=== PATIENT | male | born 1985 | race American Indian/Alaskan Native ===

== ENCOUNTER 2021-01-22 14:48 | Emergency (ER) | payer OTHER ==
[2021-01-22 14:54] VITALS: BP 143/86
--- NOTE | 2021-01-22 16:36 | ED Physician Documentation ---
History of Present Illness - Stated complaint Stated Complaint: L FT INJ - Chief complaint Chief Complaint: Trauma Ext - Additonal information Additional information: 35-year-old male presents emergency department for evaluation of left foot and ankle pain after a partially loaded trailer at work rolled over the foot. He reports that he hyper flexed his foot and now has pain in the posterior Achilles but he is able to bear weight. No history of previous injury to this left foot or ankle. No obvious deformity. Review of Systems Constitutional: reports: Reviewed and negative Nose: reports: Reviewed and negative Throat: reports: Reviewed and negative Cardiac: reports: Reviewed and negative Respiratory: reports: Reviewed and negative GI: reports: Reviewed and negative Skin: reports: Reviewed and negative Musculoskeletal: reports: Extremity pain (Left foot) PD PAST MEDICAL HISTORY - Allergies Allergies/Adverse Reactions: Allergies Allergy/AdvReac Type Severity Reaction Status Date / Time No Known Drug Allergies Allergy Verified 01/22/21 14:51 PD ED PE EXPANDED - Extremities Extremities: Left foot (Mild tenderness of the posterior Achilles though it feels intact and he has a negative Gilliland's. Patient is able to flex and extend and bear partial weight on the foot. Mild tenderness on the dorsum of the foot without deformity or ecchymosis. ) Results - Vitals Vitals: Vital Signs - 24 hr 01/22/21 14:52 Temperature 36.5 C Heart Rate 82 Respiratory 16 Rate Blood Pressure 143/86 H O2 Saturation 98 Oxygen O2 Source Room air - Rads (name of study) left foot/ankle Radiology: Final report received (No acute fractures or dislocations) PD MEDICAL DECISION MAKING - ED course Complexity details: reviewed results, d/w patient ED course: 35-year-old male presents emergency department for evaluation of acute left posterior ankle pain after a tractor trailer rolled over his foot at work. He has pain mostly in the posterior Achilles especially with dorsi flexion. His Gilliland's test is negative however. X-rays do not reveal any acute pathology. However based on exam I suspect that he has a partial Achilles tendon tear. P atient was placed in an equinus splint and will be followed up with orthopedics for further evaluation. Recommended ibuprofen for discomfort. 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 Paperwork filled out claim number [id number]. Departure - Departure Disposition: 01 Home, Self Care Clinical Impression: Partial tear of left Achilles tendon Qualifiers: Encounter type: initial encounter Qualified Code(s): S86.012A - Strain of left Achilles tendon, initial encounter Condition: Stable Record reviewed to determine appropriate education?: Yes Instructions: Achilles Tendonitis Follow-Up: Jason Talbot MD [Provider Admit Priv/Credential] - Comments: Mustapha were seen in the emergency department today for left foot and ankle pain after your foot was rolled over by a trailer at work. Did the x-rays do not show any broken bones but I suspect that you have a partial Achilles tendon tear in your left foot. I would like you to remain in the splint until seen by orthopedics. I recommend that you take Tylenol or ibuprofen [id number] for discomfort. A partial tear like yours may simply heal with time but it is important to prevent extensive movement of this tendon as it heals this is why we are placing you in a splint. Please call the orthopedics department for follow-up tomorrow. I would like you to get seen in the next 7 to 10 days. The splint that you are wearing cannot get wet so if it does please return to the ER for a second evaluation. You can return to work if you are given a position of nonweightbearing or desk duty When following up with other providers please always refer to your claim #[id number].
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
== END 2021-01-22 17:37 | disposition home or self-care (01) ==
LOC: ED 14:48
DX: S86.012A Strain of left Achilles tendon, initial encounter (principal); W31.89XA Contact with other specified machinery, initial encounter; Y99.0 Civilian activity done for income or pay
CPT/HCPCS: 1040M; 73600; 73620; 99281; 99283

== ENCOUNTER 2021-11-01 11:37 | Outpatient (CLI) | payer OTHER, BC ==
--- NOTE | 2021-11-01 12:49 | XRAY Report ---
PROCEDURE: Wrist 2 View LT INDICATIONS: SPRAIN OF LEFT WRIST TECHNIQUE: 3 views of the wrist were acquired. COMPARISON: None FINDINGS: Bones: No fractures or dislocations. No suspicious bony lesions. Scaphoid view: Scaphoid is grossly intact. Soft tissues: No suspicious soft tissue calcifications. Mild dorsal wrist soft tissue swelling is s een. IMPRESSION: Mild dorsal wrist soft tissue swelling. No wrist fracture or dislocation. Reviewed by: Jacob Rashid MD on 11/01/2021 12:48 PM PDT Approved by: Jacob Rashid MD on 11/01/2021 12:48 PM PDT Station ID: [id number]
== END 2021-11-01 11:38 | disposition home or self-care (01) ==
LOC: DI 11:37
PROVIDERS: ATTEND Registered Nurse
DX: S63.502A Unspecified sprain of left wrist, initial encounter (principal)

== ENCOUNTER 2022-07-18 20:56 | Emergency (ER) | payer BC ==
[2022-07-18] MEDS ORDERED: TETANUS/DIPHTHERIA/PERTUSSIS 0.5 ML SYRINGE IM ONE (21:06)
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
[2022-07-18 22:02] VITALS: BP 123/82
== END 2022-07-18 22:03 | disposition home or self-care (01) ==
LOC: ED 20:56
DX: S61.412A Laceration without foreign body of left hand, initial encounter (principal); W26.0XXA Contact with knife, initial encounter; Y93.89 Activity, other specified
CPT/HCPCS: 12001; 90471; 99283

== ENCOUNTER 2023-12-17 11:16 | Outpatient (CLI) | payer OTHER ==
--- NOTE | 2023-12-17 14:18 | XRAY Report ---
PROCEDURE: Ankle 3+V RT INDICATIONS: SPRAIN OF OTHER LIGAMENT TECHNIQUE: 3 views of the ankle were acquired. COMPARISON: None. FINDINGS: Bones: No fractures or dislocations. Ankle mortise is normally aligned. No suspicious bony lesions . Soft tissues: No tibiotalar joint effusion. Achilles tendon appears normal. IMPRESSION: No visualized acute fracture or dislocation. However, occult injury cannot be excluded. Recommend romulo rt interval imaging follow-up in 7-10 days as clinically indicated for additional evaluation. Reviewed by: Madhavi Austin MD on 12/17/2023 2:16 PM PDT Approved by: Madhavi Austin MD on 12/17/2023 2:16 PM PDT Station ID: [id number]
== END 2023-12-17 11:17 | disposition home or self-care (01) ==
LOC: DI 11:16
PROVIDERS: ATTEND Family Medicine
DX: S93.491A Sprain of other ligament of right ankle, initial encounter (principal)